=== PATIENT | female | born 2000 | race Caucasian/White ===

== ENCOUNTER 2020-01-21 09:36 | Emergency (ER) | payer SELFPAY ==
[2020-01-21 09:39] VITALS: BP 117/89; PULSE 81; RESP 26; TEMP 36.6; O2SAT 100
[2020-01-21] MEDS: hydrOXYzine HCL 25 MG TABLET 50 MG PO (10:52)
--- NOTE | 2020-01-21 11:58 | ED.URI ---
HPI - URI/Sore Throat General Chief Complaint: Upper Respiratory Infection Stated Complaint: sore throat, possible fever, diff breathing Time Seen by Provider: 01/21/20 09:45 Source: patient Mode of arrival: ambulatory Limitations: no limitations History of Present Illness HPI Narrative: Patient presents with chief complaint of cough, sore throat, body aches that have been present since Friday. Patient states a lot of people at her job were sick. She had one person with sick with bronchitis. Patient states her symptoms made her scared that she will be unable to breathe and have bronchitis as well. Patient has a history of anxiety and states that her symptoms has worsened her anxiety. Patient reports marijuana use but denies other recreational drug use. Patient has not taken any medications for symptoms today. Patient denies chance of due to sexual orientation. Related Data Allergies Allergy/AdvReac Type Severity Reaction Status Date / Time No Known Allergies Allergy Verified 01/21/20 09:54 Review of Systems Review of Systems: Narrative: CONSTITUTIONAL: Reports fever, denies, or sweats. EYES: Denies visual changes, redness, or discharge. ENT: Reports rhinorrhea, congestion, sore throat, or otalgia. CARDIOVASCULAR: Denies chest pain, palpitations, or edema. RESPIRATORY: Reports cough or dyspnea. GASTROINTESTINAL: Denies abdominal pain, nausea, vomiting, or diarrhea. GENITOURINARY: Denies dysuria or hematuria. SKIN: Denies rash or itching. MUSCULOSKELETAL: Denies back pain, joint pain, or myalgia. NEUROLOGIC: Denies headache, numbness, dizziness, or weakness. PSYCHIATRIC: Reports anxiety denies depression. PMFSH Past Medical History Medical History (Updated 01/21/20 @ 12:05 by Maryann Ricks PA-C) Bronchitis Social History Social History (Updated 01/21/20 @ 12:01 by Maryann Ricks PA-C) Smoking status: Unknown if ever smoked Alcohol use details: none Substance use type: marijuana Gender identity (if verbalized by the patient): Female Exam Narrative: Exam Narrative: GENERAL: Well-appearing, well-nourished. Anxious and hyperventilating. HEAD: Normocephalic, atraumatic. EYES: PERRLA and EOMI. ENT: Nares clear, no rhinorrhea or epistaxis. Mucous membranes moist. Oropharynx without tonsillar hypertrophy exudate or other lesions. Bilateral TMs pearly [place] nonbulging NECK: Supple. No adenopathy or masses. No carotid bruits or JVD CHEST: Clear to auscultation. No respiratory distress. No wheezes rales or rhonchi. Air movement throughout. HEART: Regular rate and rhythm. No murmur heard. Normal peripheral pulses. ABDOMEN: Soft, nontender, nondistended, normal active bowel sounds. EXTREMITIES: Normal range of motion. No edema. SKIN: Warm, dry, no rash. NEURO: No focal deficits. Alert and oriented x3. PSYCH: Normal mood and affect. Course Vital Signs Vital signs: Vital Signs Temperature 97.8 F 01/21/20 09:39 Pulse Rate 81 01/21/20 09:39 Respiratory Rate 26 H 01/21/20 09:39 Blood Pressure 117/89 01/21/20 09:39 Pulse Oximetry 100 01/21/20 09:39 Temperature 97.8 F 01/21/20 09:39 Pulse Rate 81 01/21/20 09:39 Respiratory Rate 26 H 01/21/20 09:39 Blood Pressure 117/89 01/21/20 09:39 Pulse Oximetry 100 01/21/20 09:39 MDM - URI/Sore Throat MDM Narrative Medical decision making narrative: Patient states that her anxiety has increased today and she was fearful about the diagnosis of her illness. Patient was given hydroxyzine and is now calm and no longer hyperventilating. Patient is oxygen saturation have been at 100% throughout her ER stay. Patient respirations are now 18. Patient not have any dyspnea. Patient is requesting a work note to be off today. Patient instructed to treat symptom symptomatically for viral illness as she has no signs of bacterial infection at this time. Patient verbalized understanding agreement denies any other needs or concerns at t
== END 2020-01-21 12:25 | disposition home or self-care (01) ==
PROVIDERS: Emergency Provider Family Medicine
DX: B34.9 Viral infection, unspecified (principal); F41.9 Anxiety disorder, unspecified
CPT/HCPCS: 87081; 87804; 87880; 99283; A9270

== ENCOUNTER 2020-04-13 08:23 | Emergency (ER) | payer SELFPAY ==
[2020-04-13 08:36] VITALS: BP 123/63; PULSE 80; RESP 16; TEMP 36.8; O2SAT 99
--- NOTE | 2020-04-13 08:37 | PC.NURSE ---
Pt given nose clamp upon registration
--- NOTE | 2020-04-13 08:57 | ED.GENADULT ---
HPI - General Adult General Chief complaint: Epistaxis Stated complaint: nose bleed Time Seen by Provider: 04/13/20 08:57 Source: patient Mode of arrival: ambulatory Limitations: no limitations History of Present Illness HPI narrative: 19-year-old female patient presents to the [facility] with complaints of a nosebleed from the right nare for the past 45 minutes prior to arrival. Patient states this is been happening for the past week and a half and this is the fourth time. Patient states it started when she went back to work and had to wear a mask at work. Patient states that at times after the nosebleeds that she does feel little lightheaded but she sits down and eat something and does feel better. Patient denies any shortness of breath at this time. Denies any abdominal pain, nausea, vomiting or diarrhea. Patient denies that she is taking any kind of steroids, nasal steroids or any allergy medicine at this time. Patient states she does not have issues with allergies that she is aware of. Denies using any type of saline spray. Patient denies any or breast-feeding at this time. Related Data Home Medications Medication Instructions Recorded Confirmed No Home Medications 04/13/20 04/13/20 Allergies Allergy/AdvReac Type Severity Reaction Status Date / Time No Known Allergies Allergy Verified 04/13/20 08:44 Review of Systems Review of Systems: Narrative: CONSTITUTIONAL: Denies fever, chills, or sweats. EYES: Denies visual changes, redness, or discharge. ENT: Denies rhinorrhea, congestion, sore throat, or otalgia. Positive nosebleed x45 minutes CARDIOVASCULAR: Denies chest pain, palpitations, or edema. RESPIRATORY: Denies cough or dyspnea. GASTROINTESTINAL: Denies abdominal pain, nausea, vomiting, or diarrhea. GENITOURINARY: Denies dysuria or hematuria. SKIN: Denies rash or itching. MUSCULOSKELETAL: Denies back pain, joint pain, or myalgia. NEUROLOGIC: Denies headache, numbness, or weakness. PSYCHIATRIC: Denies anxiety or depression. [facility] Past Medical History Medical History Bronchitis Social History Social History Smoking status: Unknown if ever smoked Substance use type: marijuana Gender identity (if verbalized by the patient): Female Comments At the time of my signature I agree with nursing past medical history, surgical, social, and family history. There is no relevant family history pertinent to the presenting complaint. Exam Narrative: Exam Narrative: GENERAL: Well-appearing, well-nourished, and in no acute distress. HEAD: Normocephalic, atraumatic. EYES: PERRLA and EOMI. ENT: Nares with erythema and edema noted bilaterally, no rhinorrhea, epistaxis controlled with nose clamp. Mucous membranes moist. NECK: Supple. No lymphadenopathy CHEST: Clear to auscultation. No respiratory distress. HEART: Regular rate and rhythm. No murmur heard. Normal peripheral pulses. ABDOMEN: Soft, nontender, nondistended, normal active bowel sounds. EXTREMITIES: Normal range of motion. No edema. SKIN: Warm, dry, no rash. NEURO: No focal deficits. Alert and oriented x3. Course Vital Signs Vital signs: Vital Signs Temperature 36.8 C 04/13/20 08:36 Pulse Rate 80 04/13/20 08:36 Respiratory Rate 16 04/13/20 08:36 Blood Pressure 123/63 04/13/20 08:36 Pulse Oximetry 99 04/13/20 08:36 Temperature 36.8 C 04/13/20 08:36 Pulse Rate 80 04/13/20 08:36 Respiratory Rate 16 04/13/20 08:36 Blood Pressure 123/63 04/13/20 08:36 Pulse Oximetry 99 04/13/20 08:36 Reviewed. Medical Decision Making Differential Diagnosis Differential Diagnosis: Differential diagnosis: Epistaxsis, sinus infection, seasonal allergies, sinusitis. Patient was given a nose clamp on arrival and when I went into see the patient her nosebleed had stopped and there is no active bleeding at this ti
== END 2020-04-13 09:15 | disposition home or self-care (01) ==
PROVIDERS: Emergency Provider Nurse Practitioner Family
DX: R04.0 Epistaxis (principal)
CPT/HCPCS: 99211; G0463

== ENCOUNTER 2020-05-04 09:05 | Emergency (ER) | payer MEDICAID, SELFPAY ==
[2020-05-04 09:10] VITALS: BP 129/86; PULSE 60; RESP 18; TEMP 36.3; O2SAT 95
--- NOTE | 2020-05-04 09:34 | ED.GENADULT ---
HPI - General Adult General Chief complaint: Unspecified Stated complaint: nose bleed (resolved) Time Seen by Provider: 05/04/20 09:26 Source: patient Mode of arrival: ambulatory Limitations: no limitations History of Present Illness HPI narrative: This patient is a 19 year old female who presents with complaint of recurrent nosebleeds. Patient states she has had frequent nose bleeds over the past few weeks. Today she developed bleeding from her right nostril that lasted for an hour. She has had no bleeding in an hour. She reports heavy bleeding with clots. She reports shakiness and fatigue. She has been using nasal spray that she was prescribed by urgent care. She has not made an appointment with ENT as recommended. complaint: epistaxis Related Data Home Medications Medication Instructions Recorded Confirmed No Home Medications 04/13/20 04/13/20 Allergies Allergy/AdvReac Type Severity Reaction Status Date / Time No Known Allergies Allergy Verified 05/04/20 09:13 Review of Systems Review of Systems: All systems reviewed & are unremarkable except as noted in HPI and below Constitutional: Constitutional: Denies chills, Denies fever(s) and Reports weakness ENT: Reports epistaxis and Reports nasal congestion Cardiovascular: Cardiovascular: Denies chest pain PMFSH Social History Social History Smoking status: Unknown if ever smoked Substance use type: marijuana Gender identity (if verbalized by the patient): Female Exam Const: General: no acute distress Orientation/consciousness: patient oriented x3 HENMT: Head: normocephalic and atraumatic Ears: external ears normal General nose exam: No nasal polyps present and Epistaxis present on the right anterior source and dried blood present Face and sinus: sinuses nontender and face symmetric Course Vital Signs Vital signs: Vital Signs Temperature 97.4 F L 05/04/20 09:10 Pulse Rate 60 05/04/20 09:10 Respiratory Rate 18 05/04/20 09:10 Blood Pressure 129/86 05/04/20 09:10 Pulse Oximetry 95 05/04/20 09:10 Temperature 97.7 F 05/04/20 12:41 Pulse Rate 67 05/04/20 12:41 Respiratory Rate 16 05/04/20 12:41 Blood Pressure 120/67 05/04/20 12:41 Pulse Oximetry 98 05/04/20 12:41 Procedures Epistaxis Control right: Epistaxis Control Date: 05/04/20 Epistaxis Control Time: 12:29 Time Out Performed: No Direct Inspection: anterior source identified Cautery Used: silver nitrate Medical Decision Making Vital Signs Vital Signs: Vital Signs Temperature 97.4 F L 05/04/20 09:10 Pulse Rate 60 05/04/20 09:10 Respiratory Rate 18 05/04/20 09:10 Blood Pressure 129/86 05/04/20 09:10 Pulse Oximetry 95 05/04/20 09:10 Temperature 97.7 F 05/04/20 12:41 Pulse Rate 67 05/04/20 12:41 Respiratory Rate 16 05/04/20 12:41 Blood Pressure 120/67 05/04/20 12:41 Pulse Oximetry 98 05/04/20 12:41 Lab Data Result diagrams: 05/04/20 10:12 Labs: Lab Results 05/04/20 05/04/20 Range/Units 10:12 10:12 WBC 8.0 (4.5-10.0) K/mm3 RBC 4.92 (4.2-5.4) M/mm3 Hgb 14.4 (12.0-15.0) g/dL Hct 42.7 (37.0-47.0) % MCV 86.8 (80-100) fl MCH 29.3 (26-34) pg MCHC 33.7 (32-36) g/dl RDW 12.2 (11.5-14.5) % Plt Count 222 (150-375) k/mm3 MPV 12.0 H (7.4-10.4) fl Immature Gran % (Auto) 0.1 (0-0.5) % Neut % (Auto) 66.4 (45.5-73.1) % Lymph % (Auto) 21.0 (18.3-44.2) % [place] % (Auto) 8.9 H (2.6-8.5) % Eos % (Auto) 3.1 (0-4.4) % Baso % (Auto) 0.5 (0.2-1.2) % Lymph # (Auto) 1.68 (0.9-3.2) K/mm3 [place] # (Auto) 0.7 H (0.1-0.6) K/mm3 Eos # (Auto) 0.3 (0-0.3) K/mm3 Baso # (Auto) 0.0 (0.0-0.1) K/mm3 Abs Immat Gran (auto) 0.01 (0.00-0.031) K/mm3 Absolute Neuts (auto) 5.3 (1.3-6.7) K/mm3 Absolute Nucleated RBC 0.0 (0.0-0.012) K/mm3 Nuc
[2020-05-04 10:25] LABS: Basophils Percent Auto 0.5 % (0.2-1.2); Eosinophils Absolute Auto 0.3 K/mm3 (0-0.3); Eosinophils Percent Auto 3.1 % (0-4.4); Hematocrit 42.7 % (37.0-47.0); Hemoglobin 14.4 g/dL (12.0-15.0); Immature Granulocyte Absolute 0.01 K/mm3 (0.00-0.031); Immature Granulocyte Percent A 0.1 % (0-0.5); Lymphocytes Absolute Auto 1.68 K/mm3 (0.9-3.2); Mean Corpuscular HGB Conc 33.7 g/dl (32-36); Mean Corpuscular Hemoglobin 29.3 pg (26-34); Mean Corpuscular Volume 86.8 fl (80-100); Monocytes Absolute Auto 0.7 K/mm3 (0.1-0.6); Monocytes Percent Auto 8.9 % (2.6-8.5); Neutrophils Absolute Auto 5.3 K/mm3 (1.3-6.7); Neutrophils Percent Auto 66.4 % (45.5-73.1); Platelet Count Result 222 k/mm3 (150-375); Red Blood Count 4.92 M/mm3 (4.2-5.4); Red Cell Distribution Width 12.2 % (11.5-14.5)
[2020-05-04 10:34] LABS: Prothrombin Time 12.6 Seconds (11.1-14.7)
[2020-05-04 10:36] LABS: Partial Thromboplastin Time 30.5 SECONDS (22.3-36.8)
[2020-05-04 11:48] VITALS: BP 122/78; PULSE 60; RESP 14; O2SAT 100
[2020-05-04 12:41] VITALS: BP 120/67; PULSE 67; RESP 16; TEMP 36.5; O2SAT 98
== END 2020-05-04 12:42 | disposition home or self-care (01) ==
PROVIDERS: Emergency Provider General Practice
DX: R04.0 Epistaxis (principal)
CPT/HCPCS: 30901; 36415; 85025; 85610; 85730; 99283

== ENCOUNTER 2021-10-28 09:42 | Emergency (ER) | payer OTHER, SELFPAY ==
--- NOTE | 2021-10-28 09:46 | ED.URI ---
HPI - URI/Sore Throat General Chief Complaint: Upper Respiratory Infection Stated Complaint: cough Time Seen by Provider: 10/28/21 09:46 Source: patient and RN notes reviewed History of Present Illness HPI Narrative: Patient is a 21-year-old female who presents the urgent care with complaints of a cough for 3 days. Patient also reports of body aches, chills, sore throat and shortness of breath. Patient states she does have a history of bronchitis. Patient has not been Covid vaccinated and denies of exposures to Covid, flu or strep. Patient has been taking Tylenol for her symptoms. No other acute complaints. Patient appears anxious but otherwise no acute distress noted. Patient aware of the plan of care. Some parts of this dictation were generated by voice recognition software and may contain typographical and/or grammatical inaccuracies. Related Data Allergies Allergy/AdvReac Type Severity Reaction Status Date / Time No Known Allergies Allergy Verified 10/28/21 10:01 Review of Systems Review of Systems: CONSTITUTIONAL: Reports of chills and sweats EYES: Denies visual changes, redness, or discharge. ENT: Denies rhinorrhea, congestion, sore throat, or otalgia. CARDIOVASCULAR: Denies chest pain, palpitations, or edema. RESPIRATORY: Reports of harsh cough with dyspnea GASTROINTESTINAL: Reports of nausea without vomiting, diarrhea or abdominal pain GENITOURINARY: Denies dysuria or hematuria. SKIN: Denies rash or itching. MUSCULOSKELETAL: Denies back pain, joint pain reports of body aches NEUROLOGIC: Denies headache, numbness, or weakness. All other systems reviewed are negative, except as documented in HPI. [facility] Past Medical History Medical History (Updated 10/28/21 @ 10:28 by JOHN Brantley) Bronchitis Social History Social History Smoking status: Unknown if ever smoked Alcohol use details: none Substance use type: marijuana Gender identity (if verbalized by the patient): Female Comments At the time of my signature, I reviewed and agree with the nursing past medical, surgical, social, and family history. There is no relevant family history pertinent to the patient complaint. Exam Narrative: GENERAL: This is a well-nourished, well-developed patient, appears anxious HEAD: normocephalic, atraumatic. EYES: PERRL. Sclera clear/white. Vision is grossly intact. EARS: External ears normal, auditory canals clear and without drainage, TMs normal without perforation. Hearing grossly intact. NOSE: External nose normal with no obvious nasal discharge, nares without redness, clear rhinorrhea. THROAT: Mucous membranes moist, moderate erythema noted to posterior oropharynx with mild bilateral tonsillar edema/erythema without exudate or ulceration. Moderate postnasal drainage NECK: Neck supple CARDIOVASCULAR: Regular rate and rhythm without murmurs, gallops, or rubs. RESPIRATORY: Harsh nonproductive cough noted on exam. Clear to auscultation. Slightly diminished bibasilar SKIN: warm, intact with no suspicious lesions or rash, good texture and turgor. NEURO: awake, alert, and oriented to person, place and time. There were no obvious focal neurologic abnormalities. EXTREMITIES: No clubbing, cyanosis, or edema. Course Vital Signs Vital signs: Vital Signs Temperature 99.1 F 10/28/21 09:52 Pulse Rate 118 H 10/28/21 09:52 Respiratory Rate 16 10/28/21 09:52 Blood Pressure 119/73 10/28/21 09:52 Pulse Oximetry 100 10/28/21 09:52 Temperature 99.1 F 10/28/21 09:52 Pulse Rate 118 H 10/28/21 09:52 Respiratory Rate 16 10/28/21 09:52 Blood Pressure 119/73 10/28/21 09:52 Pulse Oximetry 100 10/28/21 09:52 Reviewed MDM - URI/Sore Throat MDM Narrative Medical decision making narrative: Reviewed lab results with the patient. She is aware that Covid, strep and influenza were all negative. Advised the patient complete steroid regimen a
[2021-10-28 09:52] VITALS: BP 119/73; PULSE 118; RESP 16; TEMP 37.3; O2SAT 100
== END 2021-10-28 10:35 | disposition home or self-care (01) ==
PROVIDERS: Emergency Provider Nurse Practitioner Family
DX: J40 Bronchitis, not specified as acute or chronic (principal); Z20.822 Contact with and (suspected) exposure to COVID-19
CPT/HCPCS: 87081; 87426; 87804; 87880; 99213; C9803; G0463

== ENCOUNTER 2022-03-26 11:30 | Emergency (ER) | payer OTHER, SELFPAY ==
[2022-03-26 11:32] VITALS: BP 136/77; PULSE 116; RESP 22; TEMP 36.1; O2SAT 100
--- NOTE | 2022-03-26 12:11 | PC.NURSE ---
pt states she is unable to provide a clean urine sample. pt states she is a lesbian and is not . pt states last period was at the middle of month.
[2022-03-26 12:24] LABS: Basophils Absolute Auto 0.1 K/mm3 (0.0-0.1); Basophils Percent Auto 0.4 % (0.2-1.2); Eosinophils Absolute Auto 0.2 K/mm3 (0-0.3); Eosinophils Percent Auto 1.1 % (0-4.4); Hematocrit 45.1 % (37.0-47.0); Hemoglobin 15.2 g/dL (12.0-15.0); Immature Granulocyte Absolute 0.07 K/mm3 (0.00-0.031); Immature Granulocyte Percent A 0.4 % (0-0.5); Lymphocytes Absolute Auto 0.58 K/mm3 (0.9-3.2); Lymphocytes Percent Auto 3.6 % (18.3-44.2); Mean Corpuscular HGB Conc 33.7 g/dl (32-36); Mean Corpuscular Hemoglobin 29.7 pg (26-34); Mean Corpuscular Volume 88.3 fl (80-100); Mean Platelet Volume 11.3 fl (7.4-10.4); Monocytes Absolute Auto 0.8 K/mm3 (0.1-0.6); Monocytes Percent Auto 4.7 % (2.6-8.5); Neutrophils Absolute Auto 14.5 K/mm3 (1.3-6.7); Neutrophils Percent Auto 89.8 % (45.5-73.1); Platelet Count Result 236 k/mm3 (150-375); Red Blood Count 5.11 M/mm3 (4.2-5.4); Red Cell Distribution Width 12.6 % (11.5-14.5); White Blood Count 16.1 K/mm3 (4.5-10.0)
--- NOTE | 2022-03-26 12:29 | ED.NAVMDI ---
HPI - Nausea/Vomiting/Diarrhea General Chief complaint: Nausea/Vomiting/Diarrhea Stated complaint: N/V/D since yesterday Time Seen by Provider: 03/26/22 12:25 History of Present Illness HPI Narrative: 21-year-old female presents emergency room for evaluation of abdominal pain with vomiting and diarrhea. Patient states that she became nauseated last night after eating dinner, and vomited multiple times. Patient reports the diarrhea began this morning. Describes abdominal pain as crampy feeling, pain is located in the lower abdominal area. Patient denies fever Related Data Allergies Allergy/AdvReac Type Severity Reaction Status Date / Time No Known Allergies Allergy Verified 10/28/21 10:01 Review of Systems Review of Systems: CONSTITUTIONAL: Denies fever, chills, or sweats. EYES: Denies visual changes, redness, or discharge. ENT: Denies rhinorrhea, congestion, sore throat, or otalgia. CARDIOVASCULAR: Denies chest pain, palpitations, or edema. RESPIRATORY: Denies cough or dyspnea. GASTROINTESTINAL: Reports abdominal pain, nausea, vomiting, or diarrhea. GENITOURINARY: Denies dysuria or hematuria. SKIN: Denies rash or itching. MUSCULOSKELETAL: Denies back pain, joint pain, or myalgia. NEUROLOGIC: Denies headache, numbness, dizziness, or weakness. PSYCHIATRIC: Denies anxiety or depression. [facility] Past Medical History Medical History (Updated 03/26/22 @ 13:52 by Rashawn Cervantes APRN) Bronchitis Social History Social History Smoking status: Unknown if ever smoked Alcohol use details: none Substance use type: marijuana Gender identity (if verbalized by the patient): Female Exam Narrative: GENERAL: Well-appearing, well-nourished, and in no acute distress. HEAD: Normocephalic, atraumatic. EYES: PERRLA and EOMI. CHEST: Clear to auscultation. No respiratory distress. No wheezes rales or rhonchi HEART: Regular rate and rhythm. No murmur heard. Normal peripheral pulses. ABDOMEN: Soft, nontender, nondistended, obese, normal active bowel sounds. Negative heel strike. Negative psoas and obturator signs. EXTREMITIES: Normal range of motion. No edema. SKIN: Warm, dry, no rash. NEURO: No focal deficits. Alert and oriented x3. PSYCH: Normal mood and affect. Course Vital Signs Vital signs: Vital Signs Temperature 36.1 C L 03/26/22 11:32 Pulse Rate 116 H 03/26/22 11:32 Respiratory Rate 22 H 03/26/22 11:32 Blood Pressure 136/77 03/26/22 11:32 Pulse Oximetry 100 03/26/22 11:32 Temperature 36.1 C L 03/26/22 11:32 Pulse Rate 116 H 03/26/22 11:32 Respiratory Rate 22 H 03/26/22 11:32 Blood Pressure 136/77 03/26/22 11:32 Pulse Oximetry 100 03/26/22 11:32 MDM - Nausea/Vomiting/Diarrhea MDM Narrative Medical decision making narrative: 19-year-old female presents to the emergency room for evaluation of nausea, vomiting, and diarrhea that started last night. Complaining of some generalized abdominal cramping. CBC shows a leukocytosis of 16.1. Otherwise unremarkable CMP shows slightly elevated blood sugar otherwise unremarkable. Urine shows elevated urine WBC and leuks, consistent with a urinary tract infection. Patient responded well to a liter of fluid and some Zofran. Differential Diagnosis Differential diagnosis: Likely food poisoning and gastroenteritis Medical Records Attestation: I reviewed the patient's medical records. Lab Data Attestation: I reviewed the patient's lab results. Result diagrams: 03/26/22 12:18 03/26/22 12:52 Labs: Lab Results 03/26/22 03/26/22 03/26/22 Range/Units 12:18 12:52 12:52 WBC 16.1 H (4.5-10.0) K/mm3 RBC 5.11 (4.2-5.4) M/mm3 Hgb 15.2 H (12.0-15.0) g/dL Hct 45.1 (37.0-47.0) % MCV 88.3 (80-100) fl MCH 29.7 (26-34) pg MCHC 33.7 (32-36) g/dl RDW 12.6 (11.5-14.5) % Plt Count 236 (150-375) k/mm3 MPV 11.3 H (7.4-10.4) fl
[2022-03-26] MEDS: SODIUM CHLORIDE 0.9% IV 1,000 ML 999 ML IV CONT (12:56)
[2022-03-26] MEDS: DICYCLOMINE HCL INJ 20 MG/2 ML VIAL IM (12:57)
[2022-03-26] MEDS: ONDANSETRON INJ 4 MG/2 ML VIAL IV PUSH (12:57)
[2022-03-26 13:08] LABS: Appearance Urine Clear (Clear); Bilirubin Urine Negative (Negative); Blood Urine Negative (Negative); Color Urine Yellow (Yellow); Glucose Urine UA Negative (Negative); Ketones Urine Negative (Negative); Leukocyte Esterase Ur 1+ LEU/UL (Negative); Nitrate Urine Negative (Negative); Protein Urine Trace mg/dL (Negative); Specific Grav Ur 1.015 (1.001-1.035); Urobilinogen Urine 0.2 mg/dL (<2.0); pH Urine 6.5 (5.0-9.0)
[2022-03-26 13:13] LABS: Bacteria Urine Trace /hpf; Mucus Urine Few /lpf; Squamous Epithelial Cell Urine Many /hpf (Few); WBC Urine 31-50 /hpf
[2022-03-26 13:16] LABS: Add Urine Microscopic? YES; Alanine Aminotransferase 36 U/L (4-35); Albumin Level 4.8 g/dL (3.5-5.1); Alkaline Phosphatase 68 U/L (38-126); Anion Gap 10 mmol/L (8-16); Aspartate Amino Transferase 29 U/L (14-36); Bilirubin,Total 0.8 mg/dL (0.2-1.3); Blood Urea Nitrogen 14 mg/dL (7-17); Calcium 9.2 mg/dL (8.4-10.2); Carbon Dioxide 24 mmol/L (22-30); Chloride 103 mmol/L (98-107); Estimated CRCL calculation 133 ml/min; Estimated Glomerular Filt Rate > 60; Glucose 111 mg/dL (65-110); Lipase 44 U/L (23-300); Potassium 4.2 mmol/L (3.4-5.0); Sodium 137 mmol/L (137-145)
== END 2022-03-26 14:52 | disposition home or self-care (01) ==
PROVIDERS: Emergency Medicine; Emergency Provider Nurse Practitioner Family
DX: A05.9 Bacterial foodborne intoxication, unspecified (principal); N30.00 Acute cystitis without hematuria
CPT/HCPCS: 36415; 80053; 81001; 83690; 85025; 87086; 87088; 96361; 96372; 96374; 99284; J0500; J2405; J7030